=== PATIENT | female | born 1970 | race Caucasian/White ===

== ENCOUNTER 2020-09-22 11:59 | Inpatient (IN) | payer OTHER ==
[~2020-09-22] VITALS: Ht 160 cm; Wt 84.1 kg
[2020-09-22 13:20] LABS: BASOPHIL 0.3 % (0-2); EOSINOPHIL 0.6 % (0-5); HCT 42.5 % (37.0-47.0); LYMPHOCYTE 11.5 % (15-48); MCH 30.8 pg (25.0-31.0); MCHC 32.9 g/dL (32.0-36.0); MCV 93.6 fL (78.0-100.0); MONOCYTE 6.6 % (0-12); MPV 9.6 fL (6.0-9.5); NEUTROPHIL 78.3 % (41-80); NRBC 0; PLT 435 K/uL (150-400); RBC 4.54 M/uL (4.20-5.40); RDW 13.3 % (11.5-14.0); WBC 17.6 K/uL (4.0-10.5)
[2020-09-22 13:24] LABS: INR 1.04 (0.9-1.2); PROTHROMBIN TIME 12.9 SECONDS (11.4-13.6)
[2020-09-22 13:40] LABS: ALBUMIN 2.7 g/dL (3.4-5.0); BUN/CREAT RATIO (CALC) 14.7 RATIO; CREATININE 1.09 mg/dL (0.51-0.95); GLOBULIN (CALCULATION) 5.2 g/dL; MAGNESIUM 1.9 mg/dL (1.8-2.4); POTASSIUM 3.5 mmol/L (3.5-5.1); TOTAL PROTEIN 7.9 g/dL (6.4-8.2)
[2020-09-22 13:44] LABS: LACTIC ACID 1.7 mmol/L (0.4-1.9)
[2020-09-22 14:27] LABS: BILIRUBIN 2+ mg/dL (NEGATIVE); BLOOD 3+ Ery/uL (NEGATIVE); CLARITY CLEAR (CLEAR); COLOR YELLOW (YELLOW); GLUCOSE (U) TRACE mg/dL (NORMAL); LEUKOCYTES TRACE Leu/uL (NEGATIVE); NITRITE NEGATIVE (NEGATIVE); PROTEIN 3+ mg/dL (NEGATIVE); SPECIFIC GRAVITY >=1.030 (1.001-1.030); UROBILINOGEN >=8.0 mg/dL (0.2-1.0); pH 5.5 (5.0-9.0)
[2020-09-22 14:35] LABS: BACTERIA 3+
[2020-09-22] MEDS ORDERED: LO LOESTRIN FE1 EACH PO (18:25)
--- NOTE | 2020-09-22 19:05 | NUR ---
[address] MOBLEY VIA TELEPHONE, VERBAL ORDERS GIVEN AND REPEATED BACK TO PHYSICIAN.
[2020-09-23 05:52] LABS: BASOPHIL 0.1 % (0-2); EOSINOPHIL 0.1 % (0-5); HCT 32.6 % (37.0-47.0); HGB 10.6 g/dl (12.5-16.0); LYMPHOCYTE 9.4 % (15-48); MCH 30.8 pg (25.0-31.0); MCHC 32.5 g/dL (32.0-36.0); MCV 94.8 fL (78.0-100.0); MONOCYTE 5.2 % (0-12); MPV 9.5 fL (6.0-9.5); NEUTROPHIL 83.9 % (41-80); NRBC 0; PLT 389 K/uL (150-400); RBC 3.44 M/uL (4.20-5.40); RDW 13.6 % (11.5-14.0); WBC 15.1 K/uL (4.0-10.5)
[2020-09-23 06:11] LABS: ALBUMIN 1.7 g/dL (3.4-5.0); BILIRUBIN - TOTAL 0.9 mg/dL (0.2-1.0); BUN/CREAT RATIO (CALC) 21.4 RATIO; CREATININE 0.7 mg/dL (0.51-0.95); GLOBULIN (CALCULATION) 4.2 g/dL; POTASSIUM 4.1 mmol/L (3.5-5.1); TOTAL PROTEIN 5.9 g/dL (6.4-8.2)
[2020-09-24 06:59] LABS: BASOPHIL 0.3 % (0-2); EOSINOPHIL 2.1 % (0-5); HCT 32.4 % (37.0-47.0); HGB 10.7 g/dl (12.5-16.0); MCH 30.8 pg (25.0-31.0); MCV 93.4 fL (78.0-100.0); MONOCYTE 6.4 % (0-12); MPV 9.5 fL (6.0-9.5); NEUTROPHIL 68.7 % (41-80); NRBC 0; PLT 388 K/uL (150-400); RBC 3.47 M/uL (4.20-5.40); RDW 13.8 % (11.5-14.0); WBC 11.7 K/uL (4.0-10.5)
[2020-09-24 07:25] LABS: ALBUMIN 1.8 g/dL (3.4-5.0); BILIRUBIN - TOTAL 0.5 mg/dL (0.2-1.0); CREATININE 0.75 mg/dL (0.51-0.95); GLOBULIN (CALCULATION) 4.1 g/dL; POTASSIUM 3.4 mmol/L (3.5-5.1); TOTAL PROTEIN 5.9 g/dL (6.4-8.2)
[2020-09-24] MEDS ORDERED: NORCO 5-325 TA1 EACH PO (15:05)
[2020-09-24] MEDS ORDERED: AUGMENTIN 500-1 EACH PO (15:05)
[2020-09-24] MEDS ORDERED: LACTINEX1 EACH PO (15:05)
[2021-01-02] MEDS ORDERED: PROBIOTIC1 EAC2 PO (10:52)
[2021-01-02] MEDS ORDERED: CLARITIN10 MG PO (10:52)
== END 2020-09-24 16:38 | disposition home or self-care (01) | DRG 409 ==
LOC: FER 11:59 → FAS 14:42 → FMS 17:52
PROVIDERS: Emergency Medicine; Internal Medicine; ADMIT Surgery
PROC: 0F9440Z Drainage of Gallbladder with Drainage Device, Percutaneous Endoscopic Approach (ICD-10-PCS; 2020-09-22)
PROC: 0FB44ZX Excision of Gallbladder, Percutaneous Endoscopic Approach, Diagnostic (ICD-10-PCS; principal; 2020-09-22 15:27)
DX: K81.0 Acute cholecystitis (principal); N17.9 Acute kidney failure, unspecified; K82.A1 Gangrene of gallbladder in cholecystitis; G43.909 Migraine, unspecified, not intractable, without status migrainosus; Z88.2 Allergy status to sulfonamides
CPT/HCPCS: 36415; 76705; 80053; 81001; 83605; 83690; 83735; 84145; 84443; 84484; 85025; 85610; 87070; 87075; 87077; 87186; 94010; 94760; 94762; J1100; J1170; J1650; J1885; J2250; J2405; J2543; J2704; J2710; J3010; J7030; J7120; U0002

== ENCOUNTER → 2021-01-09 | Day surgery (SDC) | payer OTHER ==
[~2021-01-09] VITALS: Ht 160 cm; Wt 79.8 kg
[~2021-01-09] MED LIST: AUGMENTIN 500-1 EACH PO; CLARITIN10 MG PO; LACTINEX1 EACH PO; LO LOESTRIN FE1 EACH PO; NORCO 5-325 TA1 EACH PO; PROBIOTIC1 EAC2 PO
[2021-01-09 10:05] LABS: HCG (URINE) SCREEN NEGATIVE (NEGATIVE)
== END | disposition home or self-care (01) ==
LOC: FAS 09:40
PROVIDERS: Anesthesiology
DX: Z12.11 Encounter for screening for malignant neoplasm of colon (principal); K51.40 Inflammatory polyps of colon without complications; G43.909 Migraine, unspecified, not intractable, without status migrainosus; Z88.2 Allergy status to sulfonamides
CPT/HCPCS: 84703; J2704; J3490; J7120